=== PATIENT | male | born 1970 | race Caucasian/White ===

== ENCOUNTER 2021-09-05 11:20 | Outpatient (REF) | payer OTHER, SELFPAY ==
--- NOTE | ~2021-09-05 | XR_ITS ---
EXAMINATION: XR SHOULDER, LEFT XR HUMERUS, LEFT CLINICAL INFORMATION: Left shoulder sprain. COMPARISON: None TECHNIQUE: 4 views of the left shoulder. AP and lateral views of the left humerus. FINDINGS: Normal alignment of the glenohumeral joint. There is a linear density adjacent to the anterior inferior glenoid rim, possibly a small fracture, the location of which would be typical secondary to an anterior inferior shoulder dislocation (osseous Bankart). Correlate with history of prior shoulder dislocation. This is an age-indeterminant finding. Otherwise, no significant degenerative findings. No focal abnormality of the left humerus. XR/XR shoulder LT min 2V IMPRESSION: Questionable small, age-indeterminant fracture fragment at the anterior inferior glenoid rim. Correlate with history of shoulder dislocation. MRI could be considered for further evaluation if indicated. Otherwise unremarkable.
--- NOTE | ~2021-09-05 | XR_ITS ---
EXAMINATION: XR SHOULDER, LEFT XR HUMERUS, LEFT CLINICAL INFORMATION: Left shoulder sprain. COMPARISON: None TECHNIQUE: 4 views of the left shoulder. AP and lateral views of the left humerus. FINDINGS: Normal alignment of the glenohumeral joint. There is a linear density adjacent to the anterior inferior glenoid rim, possibly a small fracture, the location of which would be typical secondary to an anterior inferior shoulder dislocation (osseous Bankart). Correlate with history of prior shoulder dislocation. This is an age-indeterminant finding. Otherwise, no significant degenerative findings. No focal abnormality of the left humerus. XR/XR humerus LT IMPRESSION: Questionable small, age-indeterminant fracture fragment at the anterior inferior glenoid rim. Correlate with history of shoulder dislocation. MRI could be considered for further evaluation if indicated. Otherwise unremarkable.
== END 2021-09-05 11:21 | disposition home or self-care (01) ==
LOC: HO.HMGCX 11:20
PROVIDERS: PCP Internal Medicine; Visit Provider Internal Medicine
DX: S43.402D Unspecified sprain of left shoulder joint, subsequent encounter (principal)
CPT/HCPCS: 73030; 73060

== ENCOUNTER → 2021-10-24 08:34 | Outpatient (BNVA) | payer OTHER, SELFPAY | PROVIDERS: Visit Provider Physician Assistant | DX: M75.82 Other shoulder lesions, left shoulder (principal) | CPT/HCPCS: 20610; 99202; J1040 ==

== ENCOUNTER 2021-12-10 14:00 | Outpatient (RCR) | payer OTHER, SELFPAY ==
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
--- NOTE | 2022-06-18 08:41 | MHC.PT.DC ---
[facility] [place] Office [place] Office [place] [facility] [address] Ismael Monreal [address] [phone] F: [phone] F: [phone] F: [phone] F: [phone] Physical Therapy Discharge Report Diagnosis: unspecified shoulder lesion, L shoulder Date of Surgery: Date of Evaluation: 11/04/21 Date of Discharge: 01/29/22 Treatments to Date: 4 Cancellations to Date: 0 No Shows to Date: 0 Discharge Status: Patient Elected to Stop Discharge Summary: 12/10/21: pt still with similar symptomatic presentation. no adverse reactions to todays treatment. we did start IASTM and will assess response and likely continue with it NV. 12/03 Pt fatigued after RTC strengthening exs. Pt unable to perform s/l ER with 3 reduced to 2 lb, which was brant. Pt has fascia dysfunction deltoid distally. Assess NV if KT reduced sxs Electronically signed by: Erick Nieves PT Please sign and return to therapist. Thank you for your referral.
== END 2022-06-18 08:42 | disposition home or self-care (01) ==
LOC: HO.PTCHIC 14:00
PROVIDERS: PCP Internal Medicine; Visit Provider Physician Assistant
DX: M75.82 Other shoulder lesions, left shoulder (principal)
CPT/HCPCS: 97014; 97110; 97140; 97162

== ENCOUNTER → 2022-01-28 11:17 | Outpatient (BNVA) | payer OTHER, SELFPAY | PROVIDERS: PCP Internal Medicine; Visit Provider Physician Assistant | DX: M75.82 Other shoulder lesions, left shoulder (principal) | CPT/HCPCS: 99212 ==

== ENCOUNTER 2022-02-05 19:21 | Outpatient (REF) | payer OTHER, SELFPAY ==
--- NOTE | ~2022-02-05 | MR_ITS ---
EXAMINATION: MR SHOULDER WITHOUT CONTRAST, LEFT CLINICAL INFORMATION: Slip and fall in August 2021. Progressively worsening left shoulder pain. COMPARISON: Left shoulder radiographs dated 09/05/2021. TECHNIQUE: Electrical Subcontractor images as well as axial PD fat-sat, sagittal T2, and coronal T1 images were obtained. The examination was terminated prematurely due to patient discomfort. FINDINGS: Evaluation limited secondary to premature termination and patient motion. ROTATOR CUFF: Supraspinatus tendinosis with distal bursal surface partial tearing measuring 1.9 cm in AP dimension. There appear to be thin articular surface tendon fibers remaining intact, however, evaluation is limited. No muscle atrophy or fatty infiltration. BICEPS: Normal. CORACOACROMIAL ARCH: The undersurface of the acromion is curved with no subacromial spur. Mild acromioclavicular osteoarthritis. LABRUM/CAPSULE: Evaluation of the superior and inferior labrum is significantly limited. Possible nondisplaced undersurface tear of the superior labrum. Intact anterior and posterior labrum. GLENOHUMERAL JOINT/MARROW: Grossly intact articular cartilage. No marrow edema to suggest acute osseous injury. MR/MR shoulder LT wo con IMPRESSION: Evaluation is significantly limited secondary to premature termination and patient motion. 1. Supraspinatus tendinosis with high-grade distal bursal surface partial tearing measuring 1.9 cm in AP dimension. There appear to be thin articular surface tendon fibers remaining intact, however, evaluation is significantly limited. 2. Possible nondisplaced undersurface tear of the superior labrum, however, evaluation is significantly limited. No anterior or posterior labrum tear. 3. Mild acromioclavicular osteoarthritis.
== END 2022-02-05 19:22 | disposition home or self-care (01) ==
LOC: HO.MRI 19:21
PROVIDERS: Visit Provider Physician Assistant
DX: S46.002A Unspecified injury of muscle(s) and tendon(s) of the rotator cuff of left shoulder, initial encounter (principal); X58.XXXA Exposure to other specified factors, initial encounter; Y93.9 Activity, unspecified; Y92.9 Unspecified place or not applicable; Y99.9 Unspecified external cause status
CPT/HCPCS: 73221

== ENCOUNTER → 2022-02-16 11:24 | Outpatient (BNVA) | payer OTHER, SELFPAY | PROVIDERS: PCP Internal Medicine; Visit Provider Orthopaedic Surgery | DX: M75.112 Incomplete rotator cuff tear or rupture of left shoulder, not specified as traumatic (principal) | CPT/HCPCS: 99212 ==

== ENCOUNTER → 2022-03-09 15:54 | Outpatient (REF) | payer OTHER, SELFPAY | LOC: HO.SL 15:54 | PROVIDERS: PCP Internal Medicine; Visit Provider Internal Medicine | DX: G47.33 Obstructive sleep apnea (adult) (pediatric) (principal); Z99.89 Dependence on other enabling machines and devices | CPT/HCPCS: 95806 ==

== ENCOUNTER 2023-09-14 10:14 | Outpatient (AMB) | payer OTHER, SELFPAY ==
[2023-09-14 10:17] VITALS: BP 176/100; PULSE 65; O2SAT 98; BMI 39.9
--- NOTE | 2023-09-14 10:17 | A.OFFPC_ITS ---
Vital Signs 09/14/23 10:17 Height 5 ft 10 in Weight 278 lb BMI 39.9 BP 176/100 H Blood Pressure Location Lt brachial Position Sitting Pulse 65 Pulse Source Pulse Oximeter Pulse Oximetry (%) 98 Oxygen Delivery Method Room Air Intake Visit Reasons: follow up Equipment Maintenance Engineer Required: No Glass Cutter Helper: Not Required per policy Accompanied by: Self / Same As Patient Allergies penicillin G Allergy (Unknown, Verified 09/14/23 10:17) hives Medication List - Last Reconciled 09/14/23 by Mauricio De Luna MD CPAP (CPAP Machine/Device) auto pap mode pressure 6-20 cm lisinopril 20 mg PO DAILY sertraline (Zoloft) 50 mg PO DAILY Tobacco use date assessed: 09/14/23 Dental Screening Dental Screen Date: 09/14/23 Did you have a dental visit in the last 12 months?: Yes Did you have a dental problem in the last 6 months where you did not have access to dental care?: No Was dental information given to patient?: Patient has dentist HPI follow up HPI Details HTN on Rx; doing well; compliant [facility] Medical History Obesity Anxiety Hypertension Surgical History History of appendectomy History of rhinoplasty History of back surgery Family History Father Hypertension Mother Hypertension Family/Other Mental health disorder Social History Housing: House Alcohol intake: current Alcohol intake frequency: a few times a month Alcohol type: beer Patient Tobacco Use Status: Former Tobacco user Tobacco use type: Cigarette e-Cigarette/Vaping Use: Never Used Second Hand Smoke Exposure: No service: No Current occupational status: employed Current occupation: director Current occupational exposures/hazards: No Cognitive needs: No Hearing needs: No Vision needs: Yes Questionnaire PHQ-9 Over the last 2 weeks, how often have you been bothered by any of the following problems? 1. Little interest or pleasure in doing things: not at all 2. Feeling down, depressed, or hopeless: not at all 3. Trouble falling or staying asleep, or sleeping too much: not at all 4. Feeling tired or having little energy: not at all 5. Poor appetite or overeating: not at all 6. Feeling bad about yourself - or that you are a failure or have let yourself or your family down: not at all 7. Trouble concentrating on things, such as reading the newspaper or watching television: not at all 8. Moving or speaking so slowly that other people could have noticed. Or the opposite - being so fidgety or restless that you have been moving around a lot more than usual: not at all 9. Thoughts that you would be better off or of hurting yourself in some way: not at all Total score: 0 Depression Screening Interpretation: Negative Depression Screening Done: Yes Source: Developed by Drs. Molina Sarkar, Nely Palafox, Ilya Hardwick and colleagues, with an educational cortney from [employer]. Thrive Questionnaire Date Thrive assessed: 09/14/23 I am a: Patient What is your living situation today?: I have a steady place to live Within the past 12 months, did the food you bought not last and you didn't have the money to get more?: Never true Within the past 12 months, did you worry whether your food would run out before you got money to buy more?: Never true Do you have trouble paying for medicines?: No Do you have trouble getting transportation to medical appointments?: No Do you have trouble paying your heating and electricity bill?: No Do you have trouble taking care of your child, family member or friend?: No Do you have trouble with day-to-day activities such as bathing, preparing meals, shopping, managing finances, etc.?: No Are you currently unemployed and looking for a job?: No Are you interested in more education?: No Please select the resources that you would like help with: None AUDIT C Alcohol Use Questionnaire (AUDIT-C) 1. How often do you have a drink containing alcohol?: Monthly or less 2. How many drinks containing alcohol do you have on a typical day when you are drinking?: 1 or 2 3. How often do you have six or more drinks on one occasion?: Never Total Score: 1 Score Reviewed/Action Taken: Yes DENVER-7 AMB Questionnaire DENVER-7 Date DENVER - 7 assessed: 09/14/23 Feeling nervous, anxious, or on edge: 0 = Not at all Not being able to stop or control worryin = Not at all Worrying too much about different things: 0 = Not at all Trouble relaxin = Not at all Being so restless that it is hard to sit still: 0 = Not at all Becoming easily annoyed or irritable: 0 = Not at all Feeling afraid as if something awful might happen: 0 = Not at all Total DENVER-7 score (0-4 normal; 5-9 mild; 10-14 moderate; 15-21 severe): 0 Source: Developed by Drs. Molina Sarkar, Nely Palafox, Ilya Hardwick and colleagues, with an educational cortney from [employer]. Review of Systems Const Denies chills, Denies headache(s) and Denies weight loss ENT Denies headache(s) Card Denies chest pain, Denies syncope, Denies irregular heart rhythm and Denies dyspnea Resp Denies chest congestion, Denies cough and Denies dyspnea GI Denies abdominal pain, Denies change in stool character, Denies nausea and Denies vomiting Musc Denies deformity and Denies joint swelling Neuro Denies syncope and Denies headache(s) Physical exam (Primary Care) Vital Signs: Last Vital Signs Pulse 65 09/14/23 10:17 BP 176/100 H 09/14/23 10:17 Pulse Ox 98 09/14/23 10:17 Oxygen Delivery Method Room Air 09/14/23 10:17 BMI result Body Mass Index 39.9 Tobacco/Smoking Status: Tobacco use Status Tobacco use date assessed 09/14/23 09/14/23 10:18 Patient Tobacco Use Status Former Tobacco user 09/14/23 10:18 Tobacco use type Cigarette 09/14/23 10:18 e-Cigarette/Vaping Use Never Used 09/14/23 10:18 PHQ-9: PHQ-9 Score PHQ-9: Total score 0 09/14/23 10:18 Depression Screening Interpretation: Negative Thrive Assessment: Date of Thrive Assessment Date Thrive assessed 09/14/23 09/14/23 10:18 Const General: cooperative, comfortable, no acute distress and alert Neck Neck: Yes no lymphadenopathy Thyroid: Thyroid normal Resp Effort & Inspection: normal respiratory effort Auscultation: clear to auscultation bilaterally Percussion: percussion normal Cardio Jugular venous distension: no JVD Palpation: normal PMI Rate: regular rate Rhythm: regular rhythm Heart sounds: S1 normal heart sound present and S2 normal heart sound present GI Inspection: Yes normal to inspection Palpation (GI): No hepatosplenomegaly present Skin General skin exam: no rashes or lesions noted Extrem General: Yes no clubbing, cyanosis or edema Assessment and Plan Assessment & Plan (1) Hypertension: Code(s): I10 - Essential (primary) hypertension Plan: stable; restart rx Orders: Orders Lipid Panel Today E78.5 - Hyperlipidemia, unspecified Complete Blood Count Auto Diff Today D64.9 - Anemia, unspecified Thyroid Stimulating Hormone Today E03.9 - Hypothyroidism, unspecified Comprehensive [place]. Panel Fast Today N28.9 - Disorder of kidney and ureter, unspecified Referrals Gastroenterology Referral Z12.11 - Encounter for screening for malignant neoplasm of colon Medications: Refilled lisinopril 20 mg PO DAILY 90 tabs 8RF Coding Level of Care Code Est Pt Level 3 (43853) Diagnoses Hypertension I10 Additional Codes PHQ-9 - 61853 - PHQ-9 Billing: ([id number])
== END 2023-09-14 10:46 | disposition home or self-care (01) ==
PROVIDERS: PCP Internal Medicine; Visit Provider Internal Medicine
DX: I10 Essential (primary) hypertension (principal)
CPT/HCPCS: 99213

== ENCOUNTER 2024-01-17 08:21 | Outpatient (AMB) | payer OTHER, SELFPAY ==
[2024-01-17 08:36] VITALS: BP 120/72; PULSE 75; O2SAT 99; BMI 38.6
--- NOTE | 2024-01-17 08:36 | MHC.PC.OV ---
Vital Signs 01/17/24 08:36 Height 5 ft 10 in Weight 269 lb BMI 38.6 BP 120/72 Blood Pressure Location Lt brachial Position Sitting Pulse 75 Pulse Source Pulse Oximeter Pulse Oximetry (%) 99 Oxygen Delivery Method Room Air Intake Visit Reasons: 3 mth follow up Color Checker Required: No Technical Staff Assistant: Not Required per policy Accompanied by: Self / Same As Patient Allergies penicillin G Allergy (Unknown, Verified 01/17/24 08:36) hives Medication List - Last Reconciled 01/17/24 by Mauricio De Luna MD CPAP (CPAP Machine/Device) auto pap mode pressure 6-20 cm lisinopril 20 mg PO DAILY sertraline (Zoloft) 50 mg PO DAILY Tobacco use date assessed: 01/17/24 Dental Screening Dental Screen Date: 01/17/24 Did you have a dental visit in the last 12 months?: Yes Did you have a dental problem in the last 6 months where you did not have access to dental care?: No Was dental information given to patient?: Patient has dentist HPI 3 mth follow up HPI Details HTN on Rx; doing well; compliant [facility] Medical History Obesity Anxiety Hypertension Surgical History History of appendectomy History of rhinoplasty History of back surgery Family History Father Hypertension Mother Hypertension Family/Other Mental health disorder Social History Housing: House Alcohol intake: current Alcohol intake frequency: a few times a month Alcohol type: beer Patient Tobacco Use Status: Former Tobacco user Tobacco use type: Cigarette e-Cigarette/Vaping Use: Never Used Second Hand Smoke Exposure: No service: No Current occupational status: employed Current occupation: director Current occupational exposures/hazards: No Cognitive needs: No Hearing needs: No Vision needs: Yes Questionnaire PHQ-9 Over the last 2 weeks, how often have you been bothered by any of the following problems? 1. Little interest or pleasure in doing things: not at all 2. Feeling down, depressed, or hopeless: not at all 3. Trouble falling or staying asleep, or sleeping too much: not at all 4. Feeling tired or having little energy: not at all 5. Poor appetite or overeating: not at all 6. Feeling bad about yourself - or that you are a failure or have let yourself or your family down: not at all 7. Trouble concentrating on things, such as reading the newspaper or watching television: not at all 8. Moving or speaking so slowly that other people could have noticed. Or the opposite - being so fidgety or restless that you have been moving around a lot more than usual: not at all 9. Thoughts that you would be better off or of hurting yourself in some way: not at all Total score: 0 Depression Screening Interpretation: Negative Depression Screening Done: Yes Source: Developed by Drs. Molina Sarkar, Nely Palafox, Ilya Hardwick and colleagues, with an educational cortney from [employer]. Thrive Questionnaire Date Thrive assessed: 01/17/24 I am a: Patient What is your living situation today?: I have a steady place to live Within the past 12 months, did the food you bought not last and you didn't have the money to get more?: Never true Within the past 12 months, did you worry whether your food would run out before you got money to buy more?: Never true Do you have trouble paying for medicines?: No Do you have trouble getting transportation to medical appointments?: No Do you have trouble paying your heating and electricity bill?: No Do you have trouble taking care of your child, family member or friend?: No Do you have trouble with day-to-day activities such as bathing, preparing meals, shopping, managing finances, etc.?: No Are you currently unemployed and looking for a job?: No Are you interested in more education?: No Please select the resources that you would like help with: None THRIVE Score: 0 AUDIT C Alcohol Use Questionnaire (AUDIT-C) 1. How often do you have a drink containing alcohol?: Monthly or less 2. How many drinks containing alcohol do you have on a typical day when you are drinking?: 1 or 2 3. How often do you have six or more drinks on one occasion?: Never Total Score: 1 Score Reviewed/Action Taken: Yes DENVER-7 AMB Questionnaire DENVER-7 Date DENVER - 7 assessed: 01/17/24 Feeling nervous, anxious, or on edge: 0 = Not at all Not being able to stop or control worryin = Not at all Worrying too much about different things: 0 = Not at all Trouble relaxin = Not at all Being so restless that it is hard to sit still: 0 = Not at all Becoming easily annoyed or irritable: 0 = Not at all Feeling afraid as if something awful might happen: 0 = Not at all Total DENVER-7 score (0-4 normal; 5-9 mild; 10-14 moderate; 15-21 severe): 0 Source: Developed by Drs. Molina Sarkar, Nely Palafox, Ilya Hardwick and colleagues, with an educational cortney from [employer]. Review of Systems Const Denies chills, Denies headache(s) and Denies weight loss ENT Denies headache(s) Card Denies chest pain, Denies syncope, Denies irregular heart rhythm and Denies dyspnea Resp Denies chest congestion, Denies cough and Denies dyspnea GI Denies abdominal pain, Denies change in stool character, Denies nausea and Denies vomiting Musc Denies deformity and Denies joint swelling Neuro Denies syncope and Denies headache(s) Physical exam (Primary Care) Vital Signs: Last Vital Signs Pulse 75 01/17/24 08:36 BP 120/72 01/17/24 08:36 Pulse Ox 99 01/17/24 08:36 Oxygen Delivery Method Room Air 01/17/24 08:36 BMI result Body Mass Index 38.6 Tobacco/Smoking Status: Tobacco use Status Tobacco use date assessed 01/17/24 01/17/24 08:37 Patient Tobacco Use Status Former Tobacco user 01/17/24 08:37 Tobacco use type Cigarette 01/17/24 08:37 e-Cigarette/Vaping Use Never Used 01/17/24 08:37 PHQ-9: PHQ-9 Score PHQ-9: Total score 0 01/17/24 08:37 Depression Screening Interpretation: Negative Thrive Assessment: Date of Thrive Assessment Date Thrive assessed 01/17/24 01/17/24 08:37 Const General: cooperative, comfortable, no acute distress and alert Neck Neck: Yes no lymphadenopathy Thyroid: Thyroid normal Resp Effort & Inspection: normal respiratory effort Auscultation: clear to auscultation bilaterally Percussion: percussion normal Cardio Jugular venous distension: no JVD Palpation: normal PMI Rate: regular rate Rhythm: regular rhythm Heart sounds: S1 normal heart sound present and S2 normal heart sound present GI Inspection: Yes normal to inspection Palpation (GI): No hepatosplenomegaly present Skin General skin exam: no rashes or lesions noted Extrem General: Yes no clubbing, cyanosis or edema Assessment and Plan Assessment & Plan (1) Hypertension: Code(s): I10 - Essential (primary) hypertension Plan: stable; same rx Coding Level of Care Code Est Pt Level 3 (58702) Diagnoses Hypertension I10 Additional Codes PHQ-9 - 45320 - PHQ-9 Billing: ([id number])
== END 2024-01-17 08:57 | disposition home or self-care (01) ==
PROVIDERS: PCP Internal Medicine; Visit Provider Internal Medicine
DX: I10 Essential (primary) hypertension (principal)
CPT/HCPCS: 99213

== ENCOUNTER 2024-04-18 09:17 | Outpatient (AMB) | payer OTHER, SELFPAY ==
--- NOTE | 2024-04-18 09:21 | MHC.PC.OV ---
Vital Signs 04/18/24 09:22 Height 5 ft 10 in Weight 266 lb BMI 38.2 BP 120/86 Blood Pressure Location Lt brachial Position Sitting Pulse 86 Pulse Source Pulse Oximeter Pulse Oximetry (%) 98 Oxygen Delivery Method Room Air Intake Visit Reasons: 3mth f/u Correctional Sergeant: Not Required per policy Accompanied by: Self / Same As Patient Allergies penicillin G Allergy (Unknown, Verified 04/18/24 09:22) hives Medication List - Last Reconciled 04/18/24 by Mauricio De Luna MD CPAP (CPAP Machine/Device) auto pap mode pressure 6-20 cm lisinopril 20 mg PO DAILY sertraline (Zoloft) 50 mg PO DAILY Tobacco use date assessed: 01/17/24 Dental Screening Dental Screen Date: 01/17/24 HPI 3mth f/u HPI Details htn on rx; doing well and compliant [facility] Medical History Obesity Anxiety Hypertension Surgical History History of appendectomy History of rhinoplasty History of back surgery Family History Father Hypertension Mother Hypertension Family/Other Mental health disorder Social History Housing: House Alcohol intake: current Alcohol intake frequency: a few times a month Alcohol type: beer Patient Tobacco Use Status: Former Tobacco user Tobacco use type: Cigarette e-Cigarette/Vaping Use: Never Used Second Hand Smoke Exposure: No service: No Current occupational status: employed Current occupation: director Current occupational exposures/hazards: No Cognitive needs: No Hearing needs: No Vision needs: Yes Questionnaire Thrive Questionnaire Date Thrive assessed: 01/17/24 DENVER-7 AMB Questionnaire DENVER-7 Date DENVER - 7 assessed: 01/17/24 Source: Developed by Drs. Molina Sarkar, Nely Palafox, Ilya Hardwick and colleagues, with an educational cortney from [employer]. Review of Systems Const Denies chills, Denies headache(s) and Denies weight loss ENT Denies headache(s) Card Denies chest pain, Denies syncope, Denies irregular heart rhythm and Denies dyspnea Resp Denies chest congestion, Denies cough and Denies dyspnea GI Denies abdominal pain, Denies change in stool character, Denies nausea and Denies vomiting Musc Denies deformity and Denies joint swelling Neuro Denies syncope and Denies headache(s) Physical exam (Primary Care) Vital Signs: Last Vital Signs Pulse 86 04/18/24 09:22 BP 120/86 04/18/24 09:22 Pulse Ox 98 04/18/24 09:22 Oxygen Delivery Method Room Air 04/18/24 09:22 BMI result Body Mass Index 38.2 Tobacco/Smoking Status: Tobacco use Status Tobacco use date assessed 01/17/24 04/18/24 09:22 Patient Tobacco Use Status Former Tobacco user 04/18/24 09:22 Tobacco use type Cigarette 04/18/24 09:22 e-Cigarette/Vaping Use Never Used 04/18/24 09:22 Thrive Assessment: Date of Thrive Assessment Date Thrive assessed 01/17/24 04/18/24 09:22 Const General: cooperative, comfortable, no acute distress and alert Neck Neck: Yes no lymphadenopathy Thyroid: Thyroid normal Resp Effort & Inspection: normal respiratory effort Auscultation: clear to auscultation bilaterally Percussion: percussion normal Cardio Jugular venous distension: no JVD Palpation: normal PMI Rate: regular rate Rhythm: regular rhythm Heart sounds: S1 normal heart sound present and S2 normal heart sound present GI Inspection: Yes normal to inspection Palpation (GI): No hepatosplenomegaly present Skin General skin exam: no rashes or lesions noted Extrem General: Yes no clubbing, cyanosis or edema Assessment and Plan Assessment & Plan (1) Hypertension: Code(s): I10 - Essential (primary) hypertension Plan: stable; same rx Coding Level of Care Code Est Pt Level 3 (44197) Diagnoses Hypertension I10
[2024-04-18 09:22] VITALS: BP 120/86; PULSE 86; O2SAT 98; BMI 38.2
== END 2024-04-18 09:43 | disposition home or self-care (01) ==
PROVIDERS: PCP Internal Medicine; Visit Provider Internal Medicine
DX: I10 Essential (primary) hypertension (principal)
CPT/HCPCS: 99213

== ENCOUNTER 2024-09-08 08:23 | Day surgery (SDC) | payer OTHER, SELFPAY ==
[2024-09-06 14:18] VITALS: BMI 40.4
--- OUTSIDE RECORDS SUMMARY | 2024-09-07 13:23 | XMS_ITS ---
Author Organization [facility] Address [address] [facility] [address] [place] [address] Care Team Providers Care Fabricating Machine Operator Name Role Phone Mauricio De Luna MD Primary Care Provider Molina Omer Unavailable [phone] REASON FOR VISIT Patient presents today for a colon screening Encounters Encounter Location Date Provider Diagnosis [facility] [address] [facility] [address] [place] [phone] 01/27/2024 Molina Ruano PLAN OF TREATMENT Next Appt Details Provider Name:Molina Ruano , 09/08/2024 09:30:00 AM, [address] [place] [address] , [place], [place], [phone],
--- OUTSIDE RECORDS SUMMARY | 2024-09-07 13:23 | XMS_ITS ---
Author Organization [facility] Address [address] [place] [address] Care Team Providers Care Conference Planner Name Role Phone Mauricio De Luna MD Primary Care Provider Molina Omer Unavailable [phone] ALLERGIES No Known Allergies REASON FOR VISIT Patient presents today for a colon screening MEDICATIONS Medication SIG (Take, Route, Fr equency, Duration) Notes Start Date End Date Status Lisinopril 20 MG TAKE 1 TABLET BY MESERET TH DAILY Oral for 90 Active Sertraline HCl 50 MG TAKE 1 TABLET BY MO UTH DAILY Oral for 60 Active SOCIAL HISTORY Tobacco Use: Social History Observation Description Date Details (start date - stop date) Never Smoker NA - NA Sex Assigned At : Social History Observation Description Sex Assigned At Unknown Tobacco Use/Smoking Question Answer Notes Patient is a nonsmoker Alcohol Screen Question Answer Notes Did you have a drink contain ing alcohol in the past year? Yes How often did you have a dri nk containing alcohol in the past year? 2 to 4 times a month (2 points) How many drinks did you have on a typical day when you were drinking in the past year? 1 or 2 drinks (0 point) How often did you have 6 or more drinks on one occasion in the past year? Never (0 point) Points 2 Interpretation Negative PROBLEMS Problem Type ICD Code Onset Dates Problem Status W/U Status Risk SNOMED Code Notes Problem Colon cancer screening (Z12.11) Active confirmed Colon cancer screening (633663251) Problem Encounter for other preprocedural examination (Z01.818) Active confirmed Pre-procedure evaluation check (214102464) VITAL SIGNS BMI 40.46 kg/m2 05/24/2024 Blood pressure systolic 000 mm Hg 05/24/20 24 Blood pressure diastolic 00 mm Hg 024 Height 5 ft 8 in in 05/24/2024 Temperature 98.7 degrees Fahrenheit 05/24/20 Weight 266 lb 2 oz lbs 05/24/2024 Encounters Encounter Location Date Provider Diagnosis [facility] [address] [place] [address] 05/24/2024 Molina Ruano Colon cancer screeni ng Z12.11 and Encounter for other preprocedural examination Z01.818 ASSESSMENTS Encounter Date Diagnosis Assessment Notes Treatment Notes Treatment Clinical Notes 05/24/2024 Colon cancer screening (ICD-10 - Z12.11) 05/24/2024 Encounter for other preprocedural examination (ICD-10 - Z01.818) PLAN OF TREATMENT Future Test Test Name Order Date COLONOSCOPY 05/24/2024 Next Appt Details Follow Up: prn, Reason: Provider Name:Molina Ruano , 09/08/2024 09:30:00 AM, [address] [place] [address] , [place], [place], [phone], Progress Notes * Examination Category Sub-Category Detail Notes General Examination GENERAL APPEARANCE: pleasant , well nourished, well developed, in no acute distress HEAD: EYES: sclera non-icteric EARS: NOSE: THROAT: NECK/THYROID: no cervical lymphade nopathy, neck supple HEART: S1, S2 normal CHEST: LUNGS: clear to auscultatio n bilaterally ABDOMEN: normal bowel sounds, no guarding or rigidity, no guarding or rigidity, no masses palpable, soft, nontender, nondistended NEUROLOGIC: alert and oriented SKIN: nonjaundiced, no spi sophie angiomata EXTREMITIES: no edema PERIPHERAL PULSES: BACK: BREASTS: MUSCULOSKELETAL: MALE GENITOURINARY: LYMPH NODES: RECTAL EXAM: FEMALE GENITOURINARY: ORAL CAVITY: mucosa moist
--- OUTSIDE RECORDS SUMMARY | 2024-09-07 13:23 | XMS_ITS ---
Author Organization [facility] Address [address] [place] [address] Care Team Providers Care Millwright Helper Name Role Phone Mauricio De Luna MD Primary Care Provider UnavailMolina Oconnor Unavailable [phone] REASON FOR VISIT New pt no show Encounters Encounter Location Date Provider Diagnosis [facility] [address] [place] [phone] 01/27/2024 Molina Ruano PLAN OF TREATMENT Next Appt Details Provider Name:Molina Ruano , 09/08/2024 09:30:00 AM, [address] [place] [address] , [place], [place], [phone],
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
--- OUTSIDE RECORDS SUMMARY | 2024-09-08 08:35 | XMS_ITS ---
Author Organization [facility] Address [address] [place] [address] Care Team Providers Care Test Conductor Name Role Phone Mauricio De Luna MD Primary Care Provider Jaa Molina Lujan Unavailable [phone] REASON FOR VISIT screening Encounters Encounter Location Date Provider Diagnosis [facility] [place] [address] [place] [phone] 09/08/2024 Molina Ruano PLAN OF TREATMENT Next Appt Details Provider Name:Molina Ruano , 09/08/2024 09:30:00 AM, [address] [place] [address], [phone],
--- OUTSIDE RECORDS SUMMARY | 2024-09-08 08:35 | XMS_ITS ---
Author Organization [facility] Address [address] [place] [address] Care Team Providers Care Director Of Strategic Alliances Name Role Phone Mauricio De Luna MD Primary Care Provider UnavailMolina Oconnor Unavailable [phone] REASON FOR VISIT New pt no show Encounters Encounter Location Date Provider Diagnosis [facility] [address] [place] [phone] 01/27/2024 Molina Ruano PLAN OF TREATMENT Next Appt Details Provider Name:Molina Ruano , 09/08/2024 09:30:00 AM, [address] [place] [address] , [place], [place], [phone],
--- OUTSIDE RECORDS SUMMARY | 2024-09-08 08:35 | XMS_ITS ---
Author Organization [facility] Address [address] [place] [address] Care Team Providers Care Hardware Sales Assistant Name Role Phone Mauricio De Luna MD Primary Care Provider Molina Omer Unavailable [phone] ALLERGIES No Known Allergies REASON FOR VISIT [...] screening (Z12.11) Active confirmed Colon cancer screening (477512265) Problem Encounter for other preprocedural examination (Z01.818) Active confirmed Pre-procedure evaluation check (811943996) VITAL SIGNS BMI 40.46 kg/m2 05/24/2024 Blood pressure systolic 000 mm Hg 05/24/20 24 Blood pressure diastolic 00 mm Hg 024 Height 5 ft 8 in in 05/24/2024 Temperature 98.7 degrees Fahrenheit 05/24/20 Weight 266 lb 2 oz lbs 05/24/2024 Encounters Encounter Location Date Provider Diagnosis [facility] [address] [place] [address] 05/24/2024 Molina Ruano Colon cancer screeni ng [...] Provider Name:Molina Ruano , 09/08/2024 09:30:00 AM, [address] [place] [address] , [place], [place], [phone], Progress Notes * Examination Category Sub-Category Detail [...]
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
[2024-09-08 08:51] VITALS: BMI 40.0
[2024-09-08] MEDS: Lactated Ringers 1,000 ML 80 ML IVCONT (08:56)
--- NOTE | 2024-09-08 08:56 | P.CONAN_ITS ---
[facility] Active Problems Active Problems: All Active Problems Partial thickness tear of left rotator cuff (Acute) Obstructive sleep apnea (Acute) Physical exam (Acute) Tendinitis of left rotator cuff (Acute) Shoulder pain (Acute) Sprain of shoulder, left (Acute) Obesity (Acute) Anxiety (Acute) Hypertension (Acute) Past Medical History Medical History PTSD (post-traumatic stress disorder) Obesity Anxiety Hypertension Family History Family History Father Hypertension Mother Hypertension Family/Other Mental health disorder Family history of problems with anesthesia: No Surgical History Surgical History History of appendectomy History of rhinoplasty History of back surgery History of Problems with Anesthesia: No Social History Social History Housing: House Are you a primary pediatric acute care unit nurse to a significant other at home: No Do you presently have visiting nurse or other home services: No Alcohol intake: current Alcohol intake frequency: a few times a month Alcohol type: beer Patient Tobacco Use Status: Former Tobacco user Tobacco use type: Cigarette e-Cigarette/Vaping Use: Never Used Second Hand Smoke Exposure: No Have you been hit, kicked, punched, or otherwise hurt by someone within the past year? If so, by whom?: No Are you DNR?: No Advance Directives: No Advance Directives Information Provided: Yes Recently lost weight without trying: No Nutrition Risks: No Nutritional Risk service: No Current occupational status: employed Current occupation: director Current occupational exposures/hazards: No Cognitive needs: No Hearing needs: No Vision needs: Yes Meds Allergies Allergy/AdvReac Type Severity Reaction Status Date / Time penicillin G Allergy Unknown hives Verified 09/08/24 08:53 Active Medications: Current Medications Lactated Ringer's (Lr) 1,000 mls @ 80 mls/hr IVCONT .[id number] KOREY Sodium Biphosphate/Sodium Phosphate (Sodium Phosphate,Hudspeth-Dibasic 133 Ml Enema) 133 ml NH ONCE PRN PRN Reason: Poor Colonoscopy Prep Results Exam Height,Weight and Vital Signs: Height 5 ft 8 in Weight 119.295 kg Airway Mallampati Class: III TM Dist: >3cm Neck ROM: Full Assessment and Plan Assessment Anesthesia Assessment: Anesthesia Plan Discussed and Chart Reviewed Final Anesthetic Review Family History of Problems with Anesthesia: No History of Problems with Anesthesia: No NPO: Yes ASA Class: III Final Preanesthetic Review: No Changes in Pt Med Stat, Meds/Allgs Chart Reviewed, Consent Obtained/Reviewed and Anes Risks/Benef Reviewed Patient Risk: Intermediate Procedure Risk: Low Anesthetic Plan Anesthetic Plan: TIVA Disposition: Standard PACU
[2024-09-08 09:05] VITALS: BP 124/87; PULSE 100; RESP 18; TEMP 36.7; O2SAT 96
[2024-09-08 10:33] VITALS: BP 89/58; PULSE 78; RESP 16; TEMP 36.1; O2SAT 98
--- NOTE | 2024-09-08 10:35 | PM.OP ---
Brief Operative Note Date of Service: 09/08/24 Pre-op diagnosis: Screening Post-op diagnosis: other (Diverticulosis) Procedure: Colonoscopy to the cecum Surgeon: Molina Ruano MD Anesthesia: MAC Was an Concrete Finisher Apprentice used for this Procedure?: No Estimated blood loss (mL): 0 Pathology: none sent Condition: stable Disposition: PACU
[2024-09-08 10:47] VITALS: O2SAT 98
--- NOTE | 2024-09-08 11:05 | OP_ITS ---
DATE OF SERVICE: 09/08/2024 SURGEON: Molina Ruano MD INDICATIONS: The patient presents for evaluation of colorectal cancer screening. Full consent has been obtained from him for this, including risks of bleeding and perforation. PREOPERATIVE DIAGNOSIS: Colorectal cancer screening. POSTOPERATIVE DIAGNOSIS: PROCEDURE PERFORMED: Colonoscopy to the cecum. ESTIMATED BLOOD LOSS: COMPLICATIONS: ANESTHESIA: Monitored anesthesia care. ASSISTANTS: SPECIMENS: POSTOPERATIVE DIAGNOSES: Colorectal cancer screening, sigmoid diverticulosis, and internal hemorrhoids. DESCRIPTION OF PROCEDURE: The patient was placed in the left lateral decubitus position. The digital rectal exam revealed no abnormalities. The Olympus video pediatric colonoscope was entered into the rectum and advanced easily to the cecum. Once in the cecum, I did identify normal-appearing cecal pouch with appendiceal orifice and a normal-appearing ileocecal valve. The entire cecum and ileocecal valve appeared normal. There was transillumination of light deep in the right lower quadrant. The scope was slowly withdrawn assessing all mucosal surfaces carefully. Preparation was excellent. I did not visualize any sign of polyps, colitis, nor angiodysplasia. There was a mild amount of sigmoid diverticulosis. In the rectum, scope was retroflexed visualizing internal hemorrhoids but no other pathology. The rectal mucosa appeared normal. Scope was straightened and withdrawn from the patient. He tolerated the procedure well and was returned to the recovery area in stable condition. IMPRESSION: 1. Sigmoid diverticulosis. 2. Internal hemorrhoids. PLAN: Given today's negative exam and negative family history, I would recommend a followup coloscopy in 10 years for further screening. He will otherwise see me on a p.r.n. basis. Molina Ruano MD RMBrittany/MIGUELL / [id number]
== END 2024-09-08 11:04 | disposition home or self-care (01) ==
PROVIDERS: PCP Internal Medicine; Visit Provider Internal Medicine
PROC: 0DJD8ZZ Inspection of Lower Intestinal Tract, Via Natural or Artificial Opening Endoscopic (ICD-10-PCS; CPT 45378; principal; 2024-09-08 09:30)
DX: Z12.11 Encounter for screening for malignant neoplasm of colon (principal); K57.30 Diverticulosis of large intestine without perforation or abscess without bleeding; K64.8 Other hemorrhoids; I10 Essential (primary) hypertension; F41.9 Anxiety disorder, unspecified; F43.10 Post-traumatic stress disorder, unspecified; Z79.899 Other long term (current) drug therapy; Z98.1 Arthrodesis status; Z98.890 Other specified postprocedural states
CPT/HCPCS: 45378; J2704

== ENCOUNTER 2024-10-18 09:45 | Outpatient (AMB) | payer OTHER, SELFPAY ==
--- NOTE | 2024-10-18 09:56 | MHC.PC.OV ---
Vital Signs 10/18/24 09:57 Height 5 ft 8 in Weight 283 lb 8 oz BMI 43.1 BP 110/70 Blood Pressure Location Lt brachial Position Sitting Pulse 93 Pulse Source Pulse Oximeter Temp 97.3 F Temp Source Skin Pulse Oximetry (%) 96 Oxygen Delivery Method Room Air Intake Visit Reasons: 6 Month F/U Intake Note: Patient is here to follow up on HTN, CHARY. Machinist Helper Required: No Check Out Cashier: Not Required per policy Accompanied by: Self / Same As Patient Allergies penicillin G Allergy (Unknown, Verified 10/18/24 09:57) hives Medication List - Last Reconciled 10/18/24 by Mauricio De Luna MD CPAP (CPAP Machine/Device) auto pap mode pressure 6-20 cm lisinopril 20 mg PO DAILY sertraline (Zoloft) 50 mg PO DAILY Tobacco use date assessed: 10/18/24 Dental Screening Dental Screen Date: 10/18/24 Did you have a dental visit in the last 12 months?: Yes Did you have a dental problem in the last 6 months where you did not have access to dental care?: No Was dental information given to patient?: Patient has dentist HPI 6 Month F/U HPI Details hypertension on rx; doing well; compliant with meds [facility] Medical History PTSD (post-traumatic stress disorder) Obesity Anxiety Hypertension Surgical History History of appendectomy History of rhinoplasty History of back surgery Family History Father Hypertension Mother Hypertension Family/Other Mental health disorder Social History Housing: House Are you a primary youth career specialist to a significant other at home: No Do you presently have visiting nurse or other home services: No Alcohol intake: current Alcohol intake frequency: a few times a month Alcohol type: beer Patient Tobacco Use Status: Former Tobacco user Tobacco use type: Cigarette e-Cigarette/Vaping Use: Never Used Second Hand Smoke Exposure: Yes service: No Current occupational status: employed Current occupation: director Current occupational exposures/hazards: No Cognitive needs: No Hearing needs: No Vision needs: Yes Questionnaire PHQ-9 Over the last 2 weeks, how often have you been bothered by any of the following problems? 1. Little interest or pleasure in doing things: not at all 2. Feeling down, depressed, or hopeless: not at all 3. Trouble falling or staying asleep, or sleeping too much: not at all 4. Feeling tired or having little energy: not at all 5. Poor appetite or overeating: not at all 6. Feeling bad about yourself - or that you are a failure or have let yourself or your family down: not at all 7. Trouble concentrating on things, such as reading the newspaper or watching television: not at all 8. Moving or speaking so slowly that other people could have noticed. Or the opposite - being so fidgety or restless that you have been moving around a lot more than usual: not at all 9. Thoughts that you would be better off or of hurting yourself in some way: not at all Total score: 0 Depression Screening Interpretation: Negative Depression Screening Done: Yes Source: Developed by Drs. Molina Sarkar, Nely Palafox, Ilya Hardwick and colleagues, with an educational cortney from [employer]. Thrive Questionnaire Date Thrive assessed: 10/18/24 I am a: Patient What is your living situation today?: I have a steady place to live Within the past 12 months, did the food you bought not last and you didn't have the money to get more?: Never true Within the past 12 months, did you worry whether your food would run out before you got money to buy more?: Never true Do you have trouble paying for medicines?: No Do you have trouble getting transportation to medical appointments?: No Do you have trouble paying your heating and electricity bill?: No Do you have trouble taking care of your child, family member or friend?: No Do you have trouble with day-to-day activities such as bathing, preparing meals, shopping, managing finances, etc.?: No Are you currently unemployed and looking for a job?: No Are you interested in more education?: No Please select the resources that you would like help with: None Currently or been in a relationship where the following occur: No concerns reported THRIVE Score: 0 AUDIT C Alcohol Use Questionnaire (AUDIT-C) 1. How often do you have a drink containing alcohol?: Monthly or less 2. How many drinks containing alcohol do you have on a typical day when you are drinking?: 1 or 2 3. How often do you have six or more drinks on one occasion?: Never Total Score: 1 DENVER-7 AMB Questionnaire DENVER-7 Date DENVER - 7 assessed: 10/18/24 Feeling nervous, anxious, or on edge: 0 = Not at all Not being able to stop or control worryin = Not at all Worrying too much about different things: 0 = Not at all Trouble relaxin = Not at all Being so restless that it is hard to sit still: 0 = Not at all Becoming easily annoyed or irritable: 0 = Not at all Feeling afraid as if something awful might happen: 0 = Not at all Total DENVER-7 score (0-4 normal; 5-9 mild; 10-14 moderate; 15-21 severe): 0 Source: Developed by Drs. Molina Sarkar, Nely Palafox, Ilya Hardwick and colleagues, with an educational cortney from [employer]. Review of Systems Const Denies chills, Denies headache(s) and Denies weight loss ENT Denies headache(s) Card Denies chest pain, Denies syncope, Denies irregular heart rhythm and Denies dyspnea Resp Denies chest congestion, Denies cough and Denies dyspnea GI Denies abdominal pain, Denies change in stool character, Denies nausea and Denies vomiting Musc Denies deformity and Denies joint swelling Neuro Denies syncope and Denies headache(s) Physical exam (Primary Care) Vital Signs: Last Vital Signs Temp 97.3 F 10/18/24 09:57 Pulse 93 10/18/24 09:57 BP 110/70 10/18/24 09:57 Pulse Ox 96 10/18/24 09:57 Oxygen Delivery Method Room Air 10/18/24 09:57 BMI result Body Mass Index 43.1 Tobacco/Smoking Status: Tobacco use Status Tobacco use date assessed 10/18/24 10/18/24 10:01 Patient Tobacco Use Status Former Tobacco user 10/18/24 10:01 Tobacco use type Cigarette 10/18/24 10:01 e-Cigarette/Vaping Use Never Used 10/18/24 10:01 PHQ-9: PHQ-9 Score PHQ-9: Total score 0 10/18/24 10:01 Depression Screening Interpretation: Negative Thrive Assessment: Date of Thrive Assessment Date Thrive assessed 10/18/24 10/18/24 10:01 Currently or been in a relationship where the following occur: No concerns reported Const General: cooperative, comfortable, no acute distress and alert Neck Neck: Yes no lymphadenopathy Thyroid: Thyroid normal Resp Effort & Inspection: normal respiratory effort Auscultation: clear to auscultation bilaterally Percussion: percussion normal Cardio Jugular venous distension: no JVD Palpation: normal PMI Rate: regular rate Rhythm: regular rhythm Heart sounds: S1 normal heart sound present and S2 normal heart sound present GI Inspection: Yes normal to inspection Palpation (GI): No hepatosplenomegaly present Skin General skin exam: no rashes or lesions noted Extrem General: Yes no clubbing, cyanosis or edema Coding Level of Care Code Est Pt Level 3 (63242) Diagnoses Hypertension I10 Assessment & Plan Assessment & Plan (1) Hypertension: Code(s): I10 - Essential (primary) hypertension Category: Medical Plan: stable; same rx Orders: Orders Comprehensive Walker. Panel Fast Today Z13.9 - Encounter for screening, unspecified Lipid Panel Today Z13.220 - Encounter for screening for lipoid disorders Thyroid Stimulating Hormone Today Z13.29 - Encounter for screening for other suspected endocrine disorder Complete Blood Count Auto Diff Today Z13.0 - Encounter for screening for diseases of the blood and blood-forming organs and certain disorders involving the immune mechanism
[2024-10-18 09:57] VITALS: BP 110/70; PULSE 93; TEMP 36.3; O2SAT 96; BMI 43.1
== END 2024-10-18 10:24 | disposition home or self-care (01) ==
PROVIDERS: PCP Internal Medicine; Visit Provider Internal Medicine
DX: I10 Essential (primary) hypertension (principal)

== ENCOUNTER → 2024-10-18 09:45 | Outpatient (BNVA) | payer OTHER, SELFPAY | PROVIDERS: PCP Internal Medicine; Visit Provider Internal Medicine | DX: I10 Essential (primary) hypertension (principal) | CPT/HCPCS: 99212 ==

== ENCOUNTER 2025-05-30 15:49 | Outpatient (AMB) | payer OTHER, SELFPAY ==
--- OUTSIDE RECORDS SUMMARY | 2024-01-27 05:40 | XMS_ITS ---
Author Organization [facility] Address [address] [place] [phone] Care Team Providers Care Legal Billing Coordinator Name Role Phone Annamarie DOMINGO, Mauricio Primary Care Provider Molina Omer [phone] REASON FOR VISIT Patient presents today for a colon screening Encounters Encounter Location Date Provider Diagnosis [place] [facility] [address] [phone] 01/27/2024 Molina Ruano Plan Of Treatment No Information Progress Notes * BEKAH BAUMANDOB: 0 (55 yo M)Acc No.[id number]:01/27/2024 Progress Notes Patient: BEKAH RANGEL Provider: Yoko Ruano MD :1970 A ge:53 Y S ex:Male Date:01/27/2024 Address:[address] [place], [place] [id number] Pcp:Mauricio De Luna MD Subjective: * Chief [...] Ruano MD Date: 0 01/27/2024 Generated for Printi ng/Faxing/eTransmitting on: 05/30/2025 05:42 PM EDT
--- OUTSIDE RECORDS SUMMARY | 2024-09-08 05:30 | XMS_ITS ---
Author Organization [facility] Address [address] [place] [address] Care Team Providers Care Drawing In Machine Tender Helper Name Role Phone Mauricio De Luna MD Primary Care Provider Molina Omer Unavailable [phone] REASON FOR VISIT screening Problems Problem Type SNOMED Code ICD Code Onset Dates Problem Status W/U Status Risk Notes Problem Diverticular disease of colon (238488523) Diverticulosis of large intestine without perforation or abscess without bleeding (K57.30) Active confirmed Encounters Encounter Location Date Provider Diagnosis [facility] [place] [address] [place] [phone] 09/08/2024 Molina Ruano Colon cancer scree jeff [...] Of Treatment No Information Progress Notes * BEAKH BAUMANDOB: 0 (55 yo M)Acc No.[id number]:09/08/2024 COLON WITH MAC Patient: BEKAH RANGEL Provider: Yoko Ruano MD :1970 A ge:54 Y S ex:Male Date:09/08/2024 Address:[address] [place] [address] Pcp:Mauricio De Luna MD Subjective: * Chief [...] 1 11/09/2023 Generated for Maximilian connors/Victorina/Otfitting on: 0 05/30/2025 05:42 PM EDT
[2025-05-30 15:57] VITALS: BP 122/82; PULSE 96; RESP 18; TEMP 36.4; O2SAT 97; BMI 42.2
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
== END 2025-05-30 16:41 | disposition home or self-care (01) ==
DX: I10 Essential (primary) hypertension (principal); F41.9 Anxiety disorder, unspecified; E66.01 Morbid (severe) obesity due to excess calories; Z68.41 Body mass index [BMI] 40.0-44.9, adult; G47.33 Obstructive sleep apnea (adult) (pediatric); Z98.890 Other specified postprocedural states; K76.0 Fatty (change of) liver, not elsewhere classified

== ENCOUNTER → 2025-05-30 15:49 | Outpatient (BNVA) | payer OTHER, SELFPAY | PROVIDERS: PCP Internal Medicine | DX: I10 Essential (primary) hypertension (principal); G47.33 Obstructive sleep apnea (adult) (pediatric); F41.9 Anxiety disorder, unspecified; E66.01 Morbid (severe) obesity due to excess calories; K76.0 Fatty (change of) liver, not elsewhere classified; Z68.41 Body mass index [BMI] 40.0-44.9, adult; Z99.89 Dependence on other enabling machines and devices; Z79.899 Other long term (current) drug therapy; Z98.890 Other specified postprocedural states | CPT/HCPCS: 96127; 99212 ==

== ENCOUNTER 2025-06-29 07:50 | Outpatient (REF) | payer OTHER, SELFPAY ==
--- OUTSIDE RECORDS SUMMARY | 2024-01-27 05:40 | XMS_ITS ---
Author Organization [facility] Address [address] [place] [phone] Care Team Providers Care Associate Software Development Engineer Name Role Phone Annamarie DOMINGO, Mauricio Primary Care Provider Molina Omer [phone] REASON FOR VISIT Patient presents today for a colon screening Encounters Encounter Location Date Provider Diagnosis [facility] [address] [address] 01/27/2024 Molina Ruano Plan Of Treatment No Information Progress Notes * BEKAH BAUMANDOB: 0 (55 yo M)Acc No.[id number]:01/27/2024 Progress Notes Patient: BEKAH RANGEL Provider: Yoko Ruano MD :1970 A ge:53 Y S ex:Male Date:01/27/2024 Address:[address] [place], [place] [id number] Pcp:Mauricio De Luna MD Subjective: * Chief [...] MD Date: 0 01/27/2024 Generated for Chidii ng/Fasamrag/eTransmitting on: 1 07:52 AM EDT
--- OUTSIDE RECORDS SUMMARY | 2024-09-08 05:30 | XMS_ITS ---
Author Organization [facility] Address [address] [place] [address] Care Team Providers Care Junior High School Teacher Name Role Phone Mauricio De Luna MD Primary Care Provider Molina Omer Unavailable [phone] REASON FOR VISIT screening Problems Problem Type SNOMED Code ICD Code Onset Dates Problem Status W/U Status Risk Notes Problem Diverticular disease of colon (824324964) Diverticulosis of large intestine without perforation or abscess without bleeding (K57.30) Active confirmed Encounters Encounter Location Date Provider Diagnosis [facility] [place] [address] [place] [phone] 09/08/2024 Molina Ruano Colon cancer scree jeff Z12.11 ; Diverticulosis of large intestine without perforation or abscess without bleeding K57.30 and Other hemorrhoids K64.8 Assessments Encounter Date Diagnosis (ICD Code) Assessment Notes Treatment Notes Treatment Clinical Notes Section Notes 09/08/2024 Colon cancer screening (ICD-10 - Z12.11) 09/08/2024 Diverticulosis of large intestine without perforation or abscess without bleeding (ICD-10 - K57.30) 09/08/2024 Other hemorrhoids (ICD-10 - K64.8) Plan Of Treatment No Information Progress Notes * BEKAH BAUMANDOB: 0 (55 yo M)Acc No.[id number]:09/08/2024 COLON WITH MAC Patient: BEKAH RANGEL Provider: Yoko Ruano MD :1970 A ge:54 Y S ex:Male Date:09/08/2024 Address:[address] [place] [address] Pcp:Mauricio De Luna MD Subjective: * Chief Complaints: * 1 . Screening. * Medical History: Objective: * Vitals: Assessment: * Assessment: 1. C olon cancer screening - Z12.11 (Primary) 2 . D iverticulosis of large intestine without perforation or abscess without bleeding - K57.30 3 . O ther hemorrhoids - K64.8 Plan: * Treatment: * Procedure Codes: 4 5378 DIAGNOSTIC COLONOSCOPY * * The named appointment provid er may or may not be the originator of this progress note, and it is not deemed complete until electronically signed by the appointment provider. Sign off status: Pending * Provider: Yoko Ruano MD Date: 1 11/09/2023 Generated for Maximilian connors/Victorina/Otfitting on: 07:52 AM EDT
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
[2025-06-29 08:15] LABS: MANUAL DIFF FLAG NO
[2025-06-29 08:27] LABS: Hematocrit 39.7 % (42.0-52.0); Hemoglobin 13.4 g/dl (14.0-18.0); Imm Gran Abs Auto 0.04 X10*3/uL (0.00-0.03); Imm Gran Pct Auto 0.7 % (0.0-0.4); Lymphocytes Absolute Auto 1.5 X10*3/uL (1.2-4.9); Mean Corpuscular HGB Conc 33.8 g/dl (31.0-36.0); Mean Corpuscular Hemoglobin 30.2 pg (27.0-33.0); Mean Corpuscular Volume 89.4 fL (80.0-98.0); NRBC Abs Auto 0.000 X10*3/uL (0.0-0.012); NRBC Pct Auto 0.0 /100WBC (0.0-0.2); Platelet Count 230 X10*3/uL (160-400); Red Blood Count 4.44 X10*6/uL (4.60-5.80); White Blood Count 5.7 X10*3/uL (4.8-10.8)
[2025-06-29 08:42] LABS: Appearance Urine Clear; Glucose Urine UA Negative (Negative); PH 6.0 (5.0-9.0); Specific Gravity - Urine 1.020 (1.005-1.025)
[2025-06-29 09:13] LABS: Alanine Aminotransferase 26 U/L (0-40); Albumin Level 4.3 g/dL (3.5-5.0); Alkaline Phosphatase 126 U/L (39-117); Anion Gap 10 (12-20); Aspartate Amino Transferase 26 U/L (5-37); Blood Urea Nitrogen 15 mg/dL (9-16); Calcium 8.9 mg/dL (8.4-10.2); Carbon Dioxide 21 mmol/L (22-29); Chloride 110 mmol/L (96-108); Cholesterol 152 mg/dL (<200); Estimated Glomerular Filt Rate > 60; HDL Cholesterol 37 mg/dL (>40); Potassium 4.4 mmol/L (3.3-5.1); Sodium 137 mmol/L (135-145); Total Protein 6.9 g/dL (6.5-8.0); Triglycerides 72 mg/dL (<150)
[2025-06-29 09:15] LABS: PSA,Total (Free>4and<10) 0.21 ng/mL (0.00-4.00)
== END 2025-06-29 07:51 | disposition home or self-care (01) ==
LOC: HO.LAB 07:50
DX: G47.33 Obstructive sleep apnea (adult) (pediatric) (principal); I10 Essential (primary) hypertension; F41.9 Anxiety disorder, unspecified; E66.9 Obesity, unspecified; Z12.5 Encounter for screening for malignant neoplasm of prostate; Z13.21 Encounter for screening for nutritional disorder
CPT/HCPCS: 36415; 80053; 80061; 81003; 82306; 84153; 84443; 85025

== ENCOUNTER 2025-07-26 08:29 | Outpatient (REF) | payer OTHER, SELFPAY ==
[2025-07-26 11:16] LABS: Iron 112 mcg/dL (45-160); Percent Iron Saturation 36 % (15-50); Total Iron Binding Capacity 308 mcg/dL (228-428); Unsaturated Iron Binding 196 ug/dL
[2025-07-26 12:11] LABS: Folate 14.2 ng/mL (> or = 4.0); Vitamin B12 422 pg/mL (200-900)
[2025-08-02 22:54] LABS: Testosterone, Free 40.0 pg/mL (35.0-155.0)
== END 2025-07-26 08:30 | disposition home or self-care (01) ==
LOC: HO.LAB 08:29
DX: I10 Essential (primary) hypertension (principal); R53.83 Other fatigue; D64.9 Anemia, unspecified; G47.33 Obstructive sleep apnea (adult) (pediatric); F43.10 Post-traumatic stress disorder, unspecified; E66.01 Morbid (severe) obesity due to excess calories; K76.0 Fatty (change of) liver, not elsewhere classified; F41.9 Anxiety disorder, unspecified; R74.8 Abnormal levels of other serum enzymes; E78.5 Hyperlipidemia, unspecified; D22.9 Melanocytic nevi, unspecified; R73.01 Impaired fasting glucose; Z23 Encounter for immunization; Z99.89 Dependence on other enabling machines and devices; Z68.41 Body mass index [BMI] 40.0-44.9, adult; Z13.1 Encounter for screening for diabetes mellitus; Z98.890 Other specified postprocedural states
CPT/HCPCS: 36415; 82607; 82746; 83036; 83540; 84402; 84403; 90471; 90656; 96127; 99212

== ENCOUNTER 2025-07-26 08:29 | Outpatient (AMB) | payer OTHER, SELFPAY ==
--- OUTSIDE RECORDS SUMMARY | 2024-01-27 05:40 | XMS_ITS ---
Author Organization [facility] Address [address] [place] [phone] Care Team Providers Care Bottom Sander Name Role Phone Annamarie DOMINGO, Mauricio Primary Care Provider Molina Omer [phone] REASON FOR VISIT Patient presents today for a colon screening Encounters Encounter Location Date Provider Diagnosis [facility] [address] [address] 01/27/2024 Molina Ruano Plan Of Treatment No Information Progress Notes * BEKAH BAUMANDOB: 0 (55 yo M)Acc No.[id number]:01/27/2024 Progress Notes Patient: BEKAH RANGEL Provider: Yoko Ruano MD :1970 A ge:53 Y S ex:Male Date:01/27/2024 Address:[address] [place], [place] [id number] Pcp:Mauricio De Luna MD Subjective: * Chief Complaints: * 1 . Patient presents today for a colon screening. * Medical History: Objective: * Vitals: Assessment: Plan: * Treatment: * * The named appointment provid er may or may not be the originator of this progress note, and it is not deemed complete until electronically signed by the appointment provider. Sign off status: Pending * Provider: Yoko Ruano MD Date: 0 01/27/2024 Generated for Chidii ng/Faxing/eTransmitting on: 1 09:09 AM EDT
--- OUTSIDE RECORDS SUMMARY | 2024-09-08 05:30 | XMS_ITS ---
Author Organization [facility] Address [address] [place] [address] Care Team Providers Care Coal Or Ore Controller Name Role Phone Mauricio De Luna MD Primary Care Provider Molina Omer Unavailable [phone] REASON FOR VISIT screening Problems Problem Type SNOMED Code ICD Code Onset Dates Problem Status W/U Status Risk Notes Problem Diverticular disease of colon (097044388) Diverticulosis of large intestine without perforation or abscess without bleeding (K57.30) Active confirmed Encounters Encounter Location Date Provider Diagnosis [facility] [place] [address] [place] [phone] 09/08/2024 Molina Ruano Colon cancer scree jeff [...] * BEKAH BAUMANDOB: 0 (55 yo M)Acc No.[id number]:09/08/2024 COLON WITH MAC Patient: BEKAH RANGEL Provider: Yoko Ruano MD :1970 A ge:54 Y S ex:Male Date:09/08/2024 Address:[address] [place] [address] Pcp:Mauricio De Luna MD Subjective: * Chief [...] 1 11/09/2023 Generated for Maximilian connors/Victorina/Otfitting on: 09:09 AM EDT
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
[2025-07-26 08:33] VITALS: BP 138/88; PULSE 104; TEMP 36.1; O2SAT 98; BMI 42.5
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
== END 2025-07-26 09:19 | disposition home or self-care (01) ==
LOC: HO.HMCH 08:29
DX: Z23 Encounter for immunization (principal); Z13.9 Encounter for screening, unspecified